=== PATIENT | female | born 1945 | race Caucasian/White ===

== ENCOUNTER 2020-11-09 05:16 | Observation (INO) ==
--- NOTE | 2020-10-17 09:15 | Anesthesiology Consultation ---
Date of Service October 17, 2020 Assessment & Plan (1) Encounter for pre-operative examination: COVID Status: As of 10/17 assessment, patient denies travel to endemic area, known exposure/sick contacts, or symptoms of COVID19. Patient advised to adhere to social distancing guidelines, wear a mask in public and avoid large crowds or unnecessary travel in the 2 weeks leading up to surgery. Preoperative COVID19 testing to be completed prior to surgery per surgeon's arrangements (11/07). Patient encouraged to be extra cautious/conscientious with COVID precautions between COVID testing and surgery. Elevated aPTT on pre-op labs: Spoke to Dr. Chase. General protocol would be to send pt to PCP for workup for possible Lupus anticoagulant, but as patient is self-pay ([facility]) and has no PCP and no h/o clotting or bleeding, OK with proceeding as long as surgeon is aware and OK to proceed (surgeon's office was notified, will inform surgeon). Will recheck AM DOS and proceed with either SAB or GA at MDA discretion. Chart Review Chart Review: Acceptable Risk for Surgery and Patient seen in Pre Admission Testing Teaching & Discussion Instructed NPO after midnight before surgery, except medications with 15 cc of water. Medication instructions provided according to the PAT guidelines. History Surgery Operation Date: 11/09/20 14:40 Proposed Procedures p Right Total Hip Arthroplasty Anterior - Michele Sparks DO Height/Weight Height: 5 ft 2 in Weight: 68.2 kg Allergies Allergy/AdvReac Type Severity Reaction Status Date / Time No Known Drug Allergies AdvReac Verified 10/17/20 08:13 Medications Home Medications Medication Instructions Recorded Confirmed Last Taken Activator 2 cap PO QAM 10/17/20 Unknown Complex S 1 cap PO QPM 10/17/20 Unknown Diphasic A.M. 1 cap PO QAM 10/17/20 Unknown Diphasic A.M. 2 cap PO QPM 10/17/20 Unknown Immuno-Synbiotic 2 cap PO BID 10/17/20 Unknown Oxy G 1 cap PO QAM 10/17/20 Unknown aspirin [Aspir-81] 81 mg PO QDL 10/17/20 10/17/20 Unknown diclofenac sodium [Voltaren] 75 mg PO QDL 10/17/20 10/17/20 Unknown iodine [Kelp (iodine)] 150 mcg PO QAM 10/17/20 10/17/20 Unknown lactobacillus combination no.4 3,000 mmu cells PO QDL 10/17/20 10/17/20 Unknown [Probiotic] Past Medical History Medical History (Updated 10/17/20 @ 09:19 by Cristhian Branch) Anxiety hx, stress test in 1990 d/t anxiety r/t chest pain Cancer 2015 colon cancer, s/p chemo/radiation Incontinence of bowel occassional Osteoarthritis Spontaneous x 3 Exercise / Class Metabolic Activity II 4-5 Yardwork/Stairs/Walk up hill (Limited by hip pain but denies SOB or CP with 1 FOS, just moves slowly) Past Surgical History Surgical History (Updated 10/17/20 @ 08:38 by Capri Leiva RN) History of colonoscopy 2014 History of dilatation and curettage History of hysterectomy S/P colon resection 2014 Past Anesthesia History No Hx of Anesthesia Complications and No Family Hx of Anesthesia Complications History of PONV No Hx of PONV and No Hx of Motion Sickness Social History Smoking Status: Never smoker Do You Dip or Chew Tobacco: No Hx Alcohol Use: No Hx Substance Use: No substance use type: does not use Review of Systems Pt denies any recent chest pain, shortness of breath, palpitations, cough, fever, URI, or uncontrolled acid reflux. Physical Exam Vital Signs BP: 139/68 P: 75bpm SPO2: 96% RA T: 98.3 F R: 12 ENMT Mouth: + dentures and + edentulous Thyromental Distance: > or= 3.5 Finger Breadths Mallampati Class: I Neck + limited neck extension (mildly) Respiratory normal respiratory effort, lungs clear to auscultation Cardiovascular RRR, no murmur, no edema Lab Results Anesthesia Preop Results Results Anesthesia Widget: WBC 4.23 K/uL (4.8-10.8) L 10/17/20 Hgb 11.9 g/dL (12.0-16.0) L 10/17/20 Hct 34.0 % (37-47) L 10/17/20 Plt 159 K/uL (130-400) 10/17/20 Na 139 mmol/L (136-145) 10/17/20 K 4.2 mmol/L (3.5-5.1) 10/17/20 Cl 110 mmol/L (98-107) H 10/17/20 CO2 25 mmol/L (21-32) 10/17/20 BUN 22 mg/dl (7-18) H 10/17/20 Creat 0.55 mg/dl (0.6-1.2) L 10/17/20 Glucose Level 110 mg/dl (70-99) H 10/17/20 PT 10.5 Seconds (9.0-12.0) 10/17/20 PTT 37.0 Seconds (21.0-31.0) H 10/17/20 INR 1.0 (0.9-1.1) 10/17/20 Blood Type O Positive 10/17/20 Antibody Screen NEGATIVE 10/17/20 Lab Comments: Spoke to Caroline at Dr Sparks's office to make them aware of elevated PTT. Testing Electrocardiogram Date: 10/17/20 Findings: + NSR @ (73bpm) Chest X-Ray Date: 10/17/20 Findings: + NAD
--- NOTE | 2020-10-17 09:25 | PAT Medication Instructions ---
Medication Instructions Date of Service October 17, 2020 Home Medications Activator 2 cap PO QAM Complex S 1 cap PO QPM Diphasic A.M. 1 cap PO QAM Diphasic A.M. 2 cap PO QPM Immuno-Synbiotic 2 cap PO BID Oxy G 1 cap PO QAM aspirin [Aspir-81] 81 mg PO QDL diclofenac sodium [Voltaren] 75 mg PO QDL iodine [Kelp (iodine)] 150 mcg PO QAM lactobacillus combination no.4 [Probiotic] 3,000 mmu cells PO QDL ASK your surgeon for instructions diclofenac sodium [Voltaren] 75 mg PO QDL STOP taking 2 weeks before surgery If surgery is within 2 weeks, stop taking as soon as possible. Activator 2 cap PO QAM Complex S 1 cap PO QPM Diphasic A.M. 1 cap PO QAM Diphasic A.M. 2 cap PO QPM Oxy G 1 cap PO QAM iodine [Kelp (iodine)] 150 mcg PO QAM DO NOT take the morning of surgery Immuno-Synbiotic 2 cap PO BID lactobacillus combination no.4 [Probiotic] 3,000 mmu cells PO QDL Take morning of surgery With a small sip of water, OTHERWISE NOTHING TO EAT OR DRINK AFTER MIDNIGHT: aspirin [Aspir-81] 81 mg PO QDL (may skip depending on time of surgery. No need to take it early if your arrival time is scheduled for before noon) Other Notes If you have any questions please call us at [phone] or [phone] or [phone] or [phone]
--- NOTE | 2020-11-08 06:59 | History & Physical Report ---
Date of Service November 08, 2020 Assessment & Plan (1) Osteoarthritis of right hip: We will proceed with a right anterior total hip arthroplasty. Postoperatively she will be started on aspirin for DVT prophylaxis and kept overnight in the hospital for postoperative medical management. She does not plan to do physical therapy upon discharge. History of Present Illness Chief Complaint: Osteoarthritis of the right hip. Primary Care Provider: NO PCP Noemí is a pleasant 75-year-old [place] female who has been dealing with chronic worsening right hip and groin pain. Is been really bad over the past 6 months. She has been using a cane because of the pain. She takes anti-inflammatories without relief. She been seeing a chiropractor without relief. X-rays show advanced osteoarthritis of the right hip. After failing conservative treatment, she has elected to proceed with a right total hip arthroplasty.. Allergies Allergy/AdvReac Type Severity Reaction Status Date / Time No Known Drug Allergies AdvReac Verified 10/17/20 08:13 Home Medications Medication Instructions Recorded Confirmed Type Activator 2 cap PO QAM 10/17/20 History Complex S 1 cap PO QPM 10/17/20 History Diphasic A.M. 1 cap PO QAM 10/17/20 History Diphasic A.M. 2 cap PO QPM 10/17/20 History Immuno-Synbiotic 2 cap PO BID 10/17/20 History Oxy G 1 cap PO QAM 10/17/20 History aspirin [Aspir-81] 81 mg PO QDL 10/17/20 10/17/20 History diclofenac sodium [Voltaren] 75 mg PO QDL 10/17/20 10/17/20 History iodine [Kelp (iodine)] 150 mcg PO QAM 10/17/20 10/17/20 History lactobacillus combination no.4 3,000 mmu cells PO QDL 10/17/20 10/17/20 History [Probiotic] tramadol 50 mg tablet 50 mg PO Q6H PRN #20 tab 10/29/20 Rx Past Med/Surg History Medical History Anxiety hx, stress test in 1990 d/t anxiety r/t chest pain Cancer 2015 colon cancer, s/p chemo/radiation Incontinence of bowel occassional Osteoarthritis Spontaneous x 3 Surgical History History of colonoscopy 2014 History of dilatation and curettage History of hysterectomy S/P colon resection 2015 Social History Smoking Status: Never smoker Hx Alcohol Use: No Hx Substance Use: No Preferred Language: [place]i Teen Counselor Required: No Beliefs That Will Affect Care: None Current Living Situation: Spouse Feels Safe at Home: Yes Assistive Devices: Cane, Denture - Upper, Denture - Lower and Glasses Review of Systems All systems reviewed & are unremarkable except as noted in HPI & below. Physical Exam On physical examination of the right hip, she walks with an antalgic gait. She is limited range of motion. She has pain in her groin with forced internal and external rotation.. Constitutional WD/WN, vitals as above Eyes PERRL, conjunctivae normal, anicteric sclerae ENMT external ear and nose normal, oropharynx normal Neck trachea midline, no thyromegaly Respiratory normal respiratory effort Cardiovascular RRR, no murmur, no edema Gastrointestinal (Abdomen) normal bowel sounds, soft, nontender, no hepatosplenomegaly Psychiatric A+Ox3, euthymic affect Results & Data Results & Data Laboratory Results . Diagnostic Findings X-rays of the right hip do show advanced osteoarthritis with joint space narrowing, osteophyte formation, and [id number] articulation. PG Care Time/CCT Total # of Minutes Spent Total Time Spent with Patient: Total time spent is greater than 50% in coordination of care (as documented) at patient's floor/unit and/or counseling patient: Coding Level of Care Code None Diagnoses Osteoarthritis of right hip M16.11
[2020-11-09] MEDS ORDERED: FAMOTIDINE 20 MG TAB PO SCH (06:00)
[2020-11-09] MEDS ORDERED: LR 500ML BOLUS, THEN 15ML/HR IV SCH (06:00)
[2020-11-09] MEDS ORDERED: ceFAZolin 2000MG 2,000 MG/15 ML SYR IV SCH (06:00)
[2020-11-09] MEDS ORDERED: GABAPENTIN 300 MG CAP PO SCH (06:00)
[2020-11-09] MEDS ORDERED: ACETAMINOPHEN 500 MG TAB PO SCH (06:00)
[2020-11-09] MEDS ORDERED: LR 60ML/HR IV SCH (06:00)
[2020-11-09] MEDS ORDERED: ROPIVACAINE 0.5% HCL/PF 150 MG, BUPIVACAINE 0.75% MPF 20 ML, EPINEPHrine 30MG/30ML (OR ... INFIL SCH (06:00)
[2020-11-09] MEDS ORDERED: dexAMETHasone 4 MG TAB PO SCH (06:00)
[2020-11-09] MEDS ORDERED: TRANEXAMIC ACID 1,000 MG **IV Pre-op IV SCH (06:00)
[2020-11-09] MEDS ORDERED: BUPIVACAINE 0.5 % 5 MG/1 ML PF 10ML VIAL ONE (06:26)
[2020-11-09] MEDS ORDERED: ATROPINE SULFATE 0.1 MG/ML 10ML SYR IV PRN (06:27)
[2020-11-09] MEDS ORDERED: LIDOCAINE 2% 2 ML VIAL/AMP(20MG/ML) INFIL ONE (06:27)
[2020-11-09] MEDS ORDERED: ONDANSETRON INJ 2 MG/ML 2 ML VIAL IV PRN ×2 (06:27→09:31)
[2020-11-09] MEDS ORDERED: PROPOFOL IV EMULSION 10 MG/ML 20 ML VIAL IV ONE ×2 (06:27→09:47)
[2020-11-09] MEDS ORDERED: ePHEDrine sulfate 50 MG/ML AMP IV PRN (06:27)
[2020-11-09] MEDS ORDERED: MIDAZOLAM HCL 1 MG/ML 2ML VIAL ONE (06:27)
[2020-11-09] MEDS ORDERED: fentaNYL citrate 100 MCG/2 ML VIAL ONE (06:27)
[2020-11-09 06:32] LABS: Partial Thromboplastin Ratio 1.5; Partial Thromboplastin Time 38.7 Seconds (21.0-31.0); Prothrombin Time 10.5 Seconds (9.0-12.0)
--- NOTE | 2020-11-09 06:36 | History & Physical Bridge Note ---
Date of Service November 09, 2020 History & Physical Bridge Note I have examined the patient, reviewed the History & Physical and in the interval since the performance of the History & Physical I have noted the following changes of clinical significance: no changes noted
[2020-11-09] MEDS ORDERED: PHENYLEPHRINE 100MCG/ML 5ML SYR ONE (07:27)
--- NOTE | 2020-11-09 08:16 | Operative Report ---
PG Post Operative Report Pre & Post Diagnosis Operation Date: 11/09/20 07:00 Pre-Op Diagnosis: Right Hip Osteoarthritis Post-Op Diagnosis: Right Hip Osteoarthritis I identified the patient and participated in the time-out.: Yes Procedure Operation Date: 11/09/20 07:00 Actual Procedures p Right Anterior Total Hip Arthroplasty, Uncemented(Right) - Michele Sparks DO Surgeon Michele Sparks DO Price Clerk Michele Ku PAC Estimated Blood Loss 200 Findings Consistent with Post-Op Diagnosis Specimens Right femoral head Complications none Disposition Disposition: Recovery Room Indications Noemí is a pleasant 75-year-old female who is been dealing with chronic worsening right hip pain. X-rays and clinical examination have been diagnostic for advanced osteoarthritis of the right hip. After failing conservative treatment, she has elected proceed with a right anterior total hip arthroplasty. Description of Procedure Implants used I used a [employer]immer[employer] total hip arthroplasty system with a size 2 Avenir Complete stem, a 50 mm G7 cup with a 25mm screw, an E1 polyethylene liner, a 36 mm ceramic head with a -3.5 neck. Noemí arrived at the hospital for the above procedure. She was seen in the preoperative holding area and the operative extremity was identified and signed. She was given a spinal anesthetic, a preoperative antibiotic, and TXA. She was then taken back to the operating room and laid on the table in the supine position. She was given basic sedation. The operative leg was secured to a Puristst leg positioner. The hip was then prepped and draped in sterile fashion. A timeout was done and the patient and the operative extremity was properly identified. An anterior approach was used. Dissection was taken down through the fascia and the tensor muscle belly was retracted laterally and the rectus was retracted medially. The circumflex vessels were identified and ligated. The capsule was then incised and tagged for later repair. The femoral neck was then cut and the femoral head was removed. The acetabulum was exposed. Time was spent doing a complete circumferential labral release. Sequential reaming of the acetabulum up to a size 49 reamer was done. Final reamings were done under fluoroscopy to ensure appropriate version. A Biomet 50 mm G7 cup was then impacted into place. A single 25 mm screw was placed. The E1 polyethylene liner was then snapped into place. Surrounding soft tissues were then injected with 100 cc of an orthopedic pain control cocktail. The proximal femur was then exposed. Sequential broaching up to a size 2 broach was done. Off that broach a size 36 head with a -3.5 neck was trialed. The hip was reduced and fluoroscopic images showed anatomic alignment of the implants in acceptable length. The broach was removed. The final size 2 Avenir Complete stem was then impacted into place. A ceramic 36 mm head with a -3.5 neck was then impacted onto the stem and the hip was reduced. Final fluoroscopic images showed anatomic alignment of the hip. The capsule was then closed with #1 Vicryl suture. A dilute betadyne lavage was then done for 3 minutes. The joint was then irrigated with normal saline solution. The fascia was closed with #1 PDS suture. Skin was closed with 2-0 Vicryl, octaviano, and a Silverlon dressing. She was then transferred to a hospital bed and taken to the post anesthesia care unit in stable condition. She tolerated the procedure well. Michele Ku PA-C, was present for the entire procedure. He was critical for patient positioning, prepping, draping, retraction exposure, wound closure and application of sterile dressing. I attest to the content of the Intraoperative Record and any orders documented therein. Any exceptions are noted below.
--- NOTE | 2020-11-09 09:09 | Fluoroscopy Report ---
FL hip RT 1V CLINICAL HISTORY: RT ANTERIOR HIP COMPARISON STUDY: Right hip radiographs October 10, 2020 FLUOROSCOPY TIME: 29 seconds. FLUOROSCOPIC IMAGES: 2 FINDINGS: Fluoroscopy was provided during total right hip arthroplasty. Hardware is intact. There is an acetabular screw. No fracture is identified by fluoroscopy. IMPRESSION: Fluoroscopy provided during total right hip arthroplasty. ACT 112: Negative or not required by law. Electronically signed by: Anirudh Moore M.D. 11/09/2020 9:08 AM
--- NOTE | 2020-11-09 09:11 | XRay Report ---
XR hip 1V RT w pelvis CLINICAL HISTORY: Postoperative evaluation. COMPARISON: Right hip radiographs October 10, 2020. FINDINGS: Alignment of the total right hip arthroplasty is anatomic. There is no periprosthetic frac ture. There are no unexpected radiopaque foreign bodies. Acetabular screw and skin octaviano are noted. IMPRESSION: Expected findings following total right hip arthroplasty. ACT 112: Negative or not required by law. Electronically signed by: Anirudh Moore M.D. 11/09/2020 9:10 AM
[2020-11-09] MEDS ORDERED: oxyCODONE HCL IR 5 MG TAB (IMMEDIATE RELEASE) PO PRN (09:31)
[2020-11-09] MEDS ORDERED: bisacodyL 10 MG SUPP PR PRN (09:31)
[2020-11-09] MEDS ORDERED: MAGNESIUM HYDROXIDE SUSP 30 ML UDC PO PRN (09:31)
[2020-11-09] MEDS ORDERED: NALOXONE HCL 0.4 MG/1 ML VIAL/CARP IV PRN (09:31)
[2020-11-09] MEDS ORDERED: METOCLOPRAMIDE HCL INJ 5 MG/ML 2 ML VIAL IV PRN (09:31)
[2020-11-09] MEDS ORDERED: HYDROmorphone INJ 0.5 MG/0.5 ML SYR IV PRN (09:31)
[2020-11-09] MEDS ORDERED: SODIUM CHLORIDE 0.9% 1000ML 1,000 ML IV SCH (09:31)
[2020-11-09] MEDS ORDERED: [UNRECOGNIZED DRUG - OTHER] PO SCH (09:31)
[2020-11-09] MEDS: MULTIVITAMIN TAB PO SCH (10:31)
[2020-11-09] MEDS: ASPIRIN 81 MG ECTAB PO SCH ×2 (10:31→21:07)
[2020-11-09] MEDS: DOCUSATE SODIUM 100 MG CAP PO SCH ×2 (10:31→21:06)
[2020-11-09] MEDS: KETOROLAC TROMETHAMINE 15 MG/ML VIAL IV SCH ×3 (10:32→21:08)
--- NOTE | 2020-11-09 14:22 | Anesthesiology Progress Note ---
Date of Service November 09, 2020 Anesthesia Post Procedure Vital Signs Vital Signs: Temp Pulse Pulse Resp BP BP BP 11/09/20 12:40 36.4 C L 77 18 168/75 H 11/09/20 11:30 36.4 C L 65 16 134/73 11/09/20 10:33 36.5 C 72 16 147/76 H 11/09/20 10:05 36.6 C 81 16 168/77 H 11/09/20 09:31 36.4 C L 69 16 157/74 H 11/09/20 09:15 68 16 143/71 H 11/09/20 09:05 36.7 C 67 24 142/70 H 11/09/20 08:55 70 19 144/73 H 11/09/20 08:45 66 23 145/74 H 11/09/20 08:36 36.6 C 78 14 137/71 11/09/20 06:03 36.9 C 80 20 181/77 H Pulse Ox 11/09/20 12:40 99 11/09/20 11:30 99 11/09/20 10:33 99 11/09/20 10:05 100 11/09/20 09:31 96 11/09/20 09:15 96 11/09/20 09:05 95 11/09/20 08:55 97 11/09/20 08:45 100 11/09/20 08:36 100 11/09/20 06:03 99 Transfer of Care Handoff Completed per policy Notes Mental Status: alert / awake / arousable and participated in evaluation Patient Amnestic to Procedure: Yes Nausea / Vomiting: adequately controlled Pain: adequately controlled Airway Patency, RR, SpO2: stable & adequate BP & HR: stable & adequate Hydration State: stable & adequate Neuraxial Anesthesia: was administered and sensory block is resolving Anesthetic Complications: no major complications apparent and Pt Satisfied with anesthetic care
[2020-11-09] MEDS: ACETAMINOPHEN 500 MG TAB PO SCH ×2 (16:23→21:06)
[2020-11-09] MEDS: ceFAZolin 2000MG 2,000 MG/15 ML SYR IV SCH ×2 (16:23→23:32)
[2020-11-09] MEDS ORDERED: [UNRECOGNIZED DRUG - OTHER] PO SCH (21:00)
[2020-11-09] MEDS ORDERED: SENNA 8.6 MG TAB PO SCH (21:00)
[2020-11-10] MEDS: KETOROLAC TROMETHAMINE 15 MG/ML VIAL IV SCH ×2 (05:10→10:47)
[2020-11-10] MEDS: ACETAMINOPHEN 500 MG TAB PO SCH (05:11)
--- NOTE | 2020-11-10 07:40 | Orthopedic Progress Note ---
Date of Service November 10, 2020 Assessment & Plan (1) Status post right hip replacement: Overall she is doing very well. She is not having much pain in the right hip. She can be seen by physical therapy today for ambulation and range of motion exercises. She is on aspirin for DVT prophylaxis. She can be discharged home later today. She will follow-up with orthopedics in 2 weeks. Subjective Noemí was seen and examined at bedside this morning. Overall she is doing very well. She is not having much pain in the right hip. She has already been up and ambulating into the hallways. She has no complaints.. Review of Systems All systems reviewed & are unremarkable except as noted in HPI & below. Physical Exam On physical examination of the right hip, the dressing is clean and dry. Her leg lengths are equal. She has active dorsiflexion and plantarflexion of her right ankle.. Results & Data Results & Data Laboratory Results . Diagnostic Findings Postoperative x-rays of the right hip show the prosthesis to be in anatomic alignment without any evidence of fracture, dislocation, or loosening. PG Care Time/CCT Total # of Minutes Spent Total Time Spent with Patient: Total time spent is greater than 50% in coordination of care (as documented) at patient's floor/unit and/or counseling patient: Coding Level of Care Code 65108 Post Operative Follow-Up Diagnoses Status post right hip replacement Z96.641
--- NOTE | 2020-11-10 07:41 | Discharge Summary ---
Date of Service November 10, 2020 Admission HPI (Per Admitting) Noemí is a pleasant 75-year-old [facility] female who has been dealing with chronic worsening right hip and groin pain. Is been really bad over the past 6 months. She has been using a cane because of the pain. She takes anti-inflammatories without relief. She been seeing a chiropractor without relief. X-rays show advanced osteoarthritis of the right hip. After failing conservative treatment, she has elected to proceed with a right total hip arthroplasty.. Admission Exam (Per Admitting) On physical examination of the right hip, she walks with an antalgic gait. She is limited range of motion. She has pain in her groin with forced internal and external rotation.. Principal Diagnosis Same as "Discharge Diagnosis" noted below under Discharge Instructions. Discharge Exam On physical examination of the right hip, the dressing is clean and dry. Her leg lengths are equal. She has active dorsiflexion and plantarflexion of her right ankle.. Discharge Data Procedures Performed Operation Date: 11/09/20 07:00 Actual Procedures p Right Anterior Total Hip Arthroplasty, Uncemented(Right) - Michele Sparks DO Ordered Studies 11/09/20 07:00 FL hip RT 1V Routine Hospital Course (1) Status post right hip replacement: On November 09, 2020 Noemí arrived to [facility] and underwent a right anterior hip replacement without complication. She had a spinal anesthetic. Postoperatively she was started on aspirin for DVT prophylaxis and transferred to the general orthopedic floors. Her hospital course was uneventful. On postop day #1 her vital signs were stable and her pain was well controlled. She was able to participate well with physical therapy doing ambulation and range of motion exercises. She was then discharged to home. She will follow-up with orthopedics in 2 weeks. PG Care Time/CCT Total # of Minutes Spent Total Time Spent with Patient: Total time spent is greater than 50% in coordination of care (as documented) at patient's floor/unit and/or counseling patient: Discharge Plan Discharge Items Patient Disposition: Home - Home Health Services Reason For Visit: Right Hip Osteoarthritis Discharge Diagnosis: Right hip placement Activity: As commented below Non-emergency contact: Surgeon Call non-emergency contact if: your wound has increased redness and your wound has increased drainage Follow-up/Referrals: Rubi Bradford CRNP [Primary Care Provider] - Diet: Regular Addtl Attending Provider Instructions: Activity and Therapy Recommendations: * If you are using [facility] then therapy will be provided at your home until they feel you have accomplished all of your goals. * If you are using [facility] then Physical Therapy will be provided until they feel you are ready to start Outpatient Physical Therapy. * If you are not using home therapy then Outpatient Physical Therapy should start about 3-5 days from your day of surgery. Therapy will last about 6-10 weeks * You were shown a series of exercises in the hospital. Do these exercises three times each day including the exercises you were shown in physical therapy. * Get up and walk several times each day.~ For the first four weeks, try not to stand or walk for more than one hour at a time. If you do stand or walk for more than one hour, you will not hurt anything, but your leg will likely swell.~~ * As you feel comfortable, you may change from the walker or crutches to a cane and~then to independent walking. Medications: * Narcotic You will likely be sent home from the hospital with a prescription for the narcotic pain medication that worked best throughout your stay. * Aspirin Most patients will be required to take Aspirin 81mg twice a day for 6 weeks after surgery. This is obtained [id number] and a prescription is not necessary. * Other medications may be prescribed for specific circumstances. If you have any questions, please call the office at . * Resume previous home medications unless otherwise instructed TEDs/Elastic Stockings: The white elastic stockings help limit swelling and prevent blood clots from forming in your legs. The more you wear them, the more they work. Wear them for six weeks. Dressing Care: Leave the Silverlon dressing in place for 7 days. After 7 days you may remove the dressing. If the incision is not draining then you may leave the octaviano open to air. If there is a little bit of drainage or if the octaviano are getting stuck on your clothing then cover the incision with a dry dressing. The octaviano will be removed at your 2 week follow-up appointment. Showering: You may shower with the Silverlon dressing in place. Do not let the shower spray hit the dressing directly. Pat the Silverlon dressing dry. If the dressing becomes wet underneath, then simply remove the dressing. Keep the incision dry until you are 7 days out from the day of surgery. After 7 days you may remove the Silverlon dressing and shower with the octaviano exposed. Let soapy water run over the octaviano and pat them dry. Do not scrub or soak the incision. Things To Watch For: * Drainage from the incision site that occurs more than one week after your surgery. * Increased redness at the incision site. * Fever above 102 degrees Fahrenheit. * Unusual chest pain or shortness of breath. * Call [facility] at with any of the above problems Follow-Up Visit: Follow-up with Dr. Sparks's PA (Michele Ku) 2-3 weeks after your day of surgery. He will remove your octaviano and answer any questions. If you have any additional questions or concerns, Dr Sparks is usually in the office at the same time and will be available An appointment was probably scheduled when you signed-up for surgery in the office. If you have any questions call Office Instructions: More detailed instructions as well as Frequently Asked Questions were provided in a folder by our office when you signed-up for surgery. Please review these instructions when you get home. If you have any further questions or concerns, please feel free to call the office at [phone] Pending Studies at Discharge: No Stand-Alone Forms: [facility], Smoking Cessation Medications and DC Order Prescriptions: New oxycodone 5 mg Tablet 5 mg PO Q4H PRN (Reason: pain) Qty: 30 RF: 0 Continued tramadol 50 mg tablet 50 mg PO Q6H PRN (Reason: pain) Qty: 20 RF: 0 Activator 2 cap PO QAM RF: 0 diclofenac sodium [Voltaren] 75 mg Tablet,Delayed Release (Dr/Ec) 75 mg PO QDL RF: 0 Kelp (iodine) 150 mcg Tablet 150 mcg PO QAM RF: 0 Probiotic 3 billion cell Capsule 3,000 mmu cells PO QDL RF: 0 Complex S 1 cap PO QPM RF: 0 Diphasic A.M. 2 cap PO QPM RF: 0 Diphasic A.M. 1 cap PO QAM RF: 0 Immuno-Synbiotic 2 cap PO BID RF: 0 Oxy G 1 cap PO QAM RF: 0 Changed aspirin 81 mg Tablet,Delayed Release (Dr/Ec) 81 mg PO BID 42 Days Qty: 0 RF: 0 Discharge Orders: Discharge Order (Routine); Ordered 11/10/20 Ordered By: Michele Sparks Admission Data Admit Date/Time: 11/09/20 08:39 Attending Provider: Michele Sparks Admit Provider: Michele Sparks Primary Care Provider: Rubi Bradford
[2020-11-10] MEDS ORDERED: dexAMETHasone 4 MG TAB PO SCH (08:00)
[2020-11-10] MEDS: MULTIVITAMIN TAB PO SCH (08:49)
[2020-11-10] MEDS: ASPIRIN 81 MG ECTAB PO SCH (08:49)
[2020-11-10] MEDS: DOCUSATE SODIUM 100 MG CAP PO SCH (08:49)
[2020-11-10 11:53] VITALS: BP 172/77; PULSE 78; TEMP 98.1; O2SAT 98
== END 2020-11-10 13:14 | disposition home health service (06) ==
LOC: ASU 05:16 → 3E 05:16

== ENCOUNTER 2021-07-22 10:20 | Observation (INO) ==
--- NOTE | 2021-07-16 13:58 | Anesthesiology Consultation ---
Date of Service July 16, 2021 Assessment & Plan Chart Review Chart Review: Acceptable Risk for Surgery and Patient NOT seen in Pre Admission Testing Consults Requested none ASA ASA3 History Surgery Operation Date: 04/12/21 07:00 Proposed Procedures p Left Total Knee Arthroplasty - Michele Sparks DO Operation Date: 07/22/21 12:35 Proposed Procedures p Left Total Knee Arthroplasty - Michele Sparks DO Height/Weight Height: 5 ft 3 in Weight: 73.482 kg Allergies Allergy/AdvReac Type Severity Reaction Status Date / Time No Known Drug Allergies AdvReac Verified 07/16/21 10:21 Medications Home Medications Medication Instructions Recorded Confirmed Last Taken diclofenac sodium 75 mg 75 mg PO QDL 10/17/20 07/16/21 10/26/20 tablet,delayed release lactobacillus combination no.4 3 3,000 mmu cells PO QDL 10/17/20 07/16/21 10/26/20 billion cell capsule (Probiotic) oxycodone 5 mg tablet 5 mg PO Q4H PRN #30 tab 11/10/20 07/16/21 Unknown ascorbic acid (vitamin C) 500 mg 500 mg PO QAM 07/16/21 07/16/21 Unknown tablet (Vitamin C) aspirin 81 mg tablet,delayed 81 mg PO QAM 07/16/21 07/16/21 Unknown release cholecalciferol (vitamin D3) 50 50 mcg PO QAM 07/16/21 07/16/21 Unknown mcg (2,000 unit) capsule (Vitamin D3) glucosamine-chondroitin 250 mg-200 1 tab PO QAM 07/16/21 07/16/21 Unknown mg tablet (Osteo Bi-Flex) oregano oil 1,500 mg capsule 1,500 mg PO QAM 07/16/21 07/16/21 Unknown vitamin E 400 unit capsule 400 unit PO QAM 07/16/21 07/16/21 Unknown Past Medical History Medical History History of colon cancer 2015 colon cancer, s/p chemo/radiation Incontinence of bowel occassional Osteoarthritis Spontaneous x3 (PT DENIES) Exercise / Class Metabolic Activity III < 4 Walking/Shop/Light housework Past Family History Family History Other No family history of adverse response to anesthesia Past Surgical History Surgical History History of colonoscopy History of dilatation and curettage History of hysterectomy History of tooth extraction History of total right hip arthroplasty Right anterior CAROLYNE (11/09/20): SAB at L4-L5 at [facility] S/P colon resection 2014 Past Anesthesia History No Hx of Anesthesia Complications and No Family Hx of Anesthesia Complications History of PONV No Hx of PONV and No Hx of Motion Sickness Social History Smoking Status: Never smoker Hx Alcohol Use: No Hx Substance Use: No substance use type: does not use Testing Electrocardiogram Date: 10/17/20 Findings: + NSR @ (at 73)
--- NOTE | 2021-07-18 11:59 | History & Physical Report ---
Date of Service July 18, 2021 Assessment & Plan (1) Osteoarthritis of left knee: We will proceed with a left total knee arthroplasty. Postoperatively she will be kept overnight in the hospital for postoperative medical management. She will be placed on aspirin for DVT prophylaxis. She plans to do her own home physical therapy upon discharge. History of Present Illness Chief Complaint: Osteoarthritis of the left knee. Primary Care Provider: GERMAINE Hughes Noemí is a pleasant 75-year-old female who recently underwent a right anterior total hip arthroplasty. She is doing well with that. Unfortunately she is having a lot of pain in her left knee. X-rays and clinical examination have been diagnostic for advanced osteoarthritis of the left knee. After failing extensive conservative treatment, she has elected proceed with a left total knee arthroplasty. Allergies Allergy/AdvReac Type Severity Reaction Status Date / Time No Known Drug Allergies AdvReac Verified 07/16/21 10:21 Home Medications Medication Instructions Recorded Confirmed Type diclofenac sodium 75 mg 75 mg PO QDL 10/17/20 07/16/21 History tablet,delayed release lactobacillus combination no.4 3 3,000 mmu cells PO QDL 10/17/20 07/16/21 History billion cell capsule (Probiotic) oxycodone 5 mg tablet 5 mg PO Q4H PRN #30 tab 11/10/20 07/16/21 Rx ascorbic acid (vitamin C) 500 mg 500 mg PO QAM 07/16/21 07/16/21 History tablet (Vitamin C) aspirin 81 mg tablet,delayed 81 mg PO QAM 07/16/21 07/16/21 History release cholecalciferol (vitamin D3) 50 50 mcg PO QAM 07/16/21 07/16/21 History mcg (2,000 unit) capsule (Vitamin D3) glucosamine-chondroitin 250 mg-200 1 tab PO QAM 07/16/21 07/16/21 History mg tablet (Osteo Bi-Flex) oregano oil 1,500 mg capsule 1,500 mg PO QAM 07/16/21 07/16/21 History vitamin E 400 unit capsule 400 unit PO QAM 07/16/21 07/16/21 History Past Med/Surg History Medical History History of colon cancer 2014 colon cancer, s/p chemo/radiation Incontinence of bowel occassional Osteoarthritis Spontaneous x3 (PT DENIES) Surgical History History of colonoscopy History of dilatation and curettage History of hysterectomy History of tooth extraction History of total right hip arthroplasty Right anterior CAROLYNE (11/09/20): SAB at L4-L5 at [facility] S/P colon resection 2014 Family History Other No family history of adverse response to anesthesia Social History Smoking Status: Never smoker Second Hand Exposure: No; Hx Alcohol Use: No Hx Substance Use: No Preferred Language: [place] Communication Ability: Effective Cupola Melter Helper Required: No Beliefs That Will Affect Care: Baptist Baptist Beliefs: STEPHANIE marital status: Current Living Situation: Spouse Feels Safe at Home: Yes Assistive Devices: Cane, Denture - Upper, Denture - Lower and Glasses Review of Systems All systems reviewed & are unremarkable except as noted in HPI & below. Physical Exam On physical examination of the left knee, she has a significant varus deformity. She has tenderness palpation of the distal medial femoral condyle and the medial joint line. Constitutional WD/WN, vitals as above Eyes PERRL, conjunctivae normal, anicteric sclerae ENMT external ear and nose normal, oropharynx normal Neck trachea midline, no thyromegaly Respiratory normal respiratory effort Cardiovascular RRR, no murmur, no edema Gastrointestinal (Abdomen) normal bowel sounds, soft, nontender, no hepatosplenomegaly Psychiatric A+Ox3, euthymic affect Results & Data Results & Data Laboratory Results . Diagnostic Findings X-rays of the left knee show advanced osteoarthritis with joint space narrowing osteophyte formation and epfh-id-ajot articulation. PG Care Time/CCT Total # of Minutes Spent Total Time Spent with Patient: Total time spent is greater than 50% in coordination of care (as documented) at patient's floor/unit and/or counseling patient: Coding Level of Care Code None Diagnoses Osteoarthritis of left knee M17.12
[~2021-07-22 10:20] MED LIST: ACETAMINOPHEN 500 MG TAB PO SCH; GABAPENTIN 300 MG CAP PO SCH; Ketorolac (*for OR use only*) 30 MG, dexAMETHasone 4 MG, KETAMINE HCL (**OR use only) 1... INFIL SCH; LR 15ML/HR IV SCH; LR 60ML/HR IV SCH; TRANEXAMIC ACID 1,000 MG **IV Intra-op IV SCH; TRANEXAMIC ACID 1,000 MG **IV Pre-op IV SCH; ceFAZolin 2000MG 2,000 MG/15 ML SYR IV SCH; dexAMETHasone 4 MG TAB PO SCH
--- NOTE | 2021-07-22 10:51 | History & Physical Bridge Note ---
Date of Service July 22, 2021 History & Physical Bridge Note I have examined the patient, reviewed the History & Physical and in the interval since the performance of the History & Physical I have noted the following changes of clinical significance: no changes noted
[2021-07-22 11:17] LABS: Hematocrit (blood only) 34.2 % (37-47); Hemoglobin 12.2 g/dL (12.0-16.0); Mean Corpuscular Hemoglobin 34.8 pg (25-34); Mean Corpuscular Volume 97.4 fL (80-100); Mean Platelet Volume 10.6 fL (7.4-10.4); Platelet Count 131 K/uL (130-400); RDW Coefficient of Variation 12.2 % (11.5-14.5); RDW Standard Deviation 43.4 fL (36.4-46.3); Red Blood Count 3.51 M/uL (4.2-5.4); White Blood Count 4.06 K/uL (4.8-10.8)
[2021-07-22 11:21] LABS: Mean Corpuscular Hgb Conc 35.7 g/dL (32-36)
[2021-07-22 11:40] LABS: Calcium 9.5 mg/dl (8.5-10.1); Potassium 3.8 mmol/L (3.5-5.1)
[2021-07-22] MEDS ORDERED: MIDAZOLAM HCL 1 MG/ML 2ML VIAL ONE (12:32)
[2021-07-22] MEDS ORDERED: BUPIVACAINE 0.5 % 5 MG/1 ML PF 10ML VIAL ONE (12:46)
[2021-07-22] MEDS ORDERED: EPINEPHrine INJ 1 MG/ML AMP ONE (12:46)
[2021-07-22] MEDS ORDERED: DEXAMETHASONE SOD INJ 4 MG/ML VIAL ONE (12:46)
[2021-07-22] MEDS ORDERED: BUPIVACAINE 0.25% 30 ML VIAL ONE (12:47)
[2021-07-22] MEDS ORDERED: ORTHO JOINT ANESTHETIC ONE (12:51)
[2021-07-22] MEDS ORDERED: fentaNYL citrate 100 MCG/2 ML VIAL IV PRN (13:25)
[2021-07-22] MEDS ORDERED: ePHEDrine sulfate 50 MG/ML AMP IV PRN (13:25)
[2021-07-22] MEDS ORDERED: ONDANSETRON INJ 2 MG/ML 2 ML VIAL IV PRN ×2 (13:25→16:09)
[2021-07-22] MEDS ORDERED: ATROPINE SULFATE 0.1 MG/ML 10ML SYR IV PRN (13:25)
[2021-07-22] MEDS ORDERED: PROPOFOL IV EMULSION 10 MG/ML 20 ML VIAL IV ONE ×2 (13:57→14:47)
[2021-07-22] MEDS ORDERED: KETAMINE 50 MG/5 ML SYRINGE ONE (13:57)
[2021-07-22] MEDS ORDERED: LIDOCAINE 2% 2 ML VIAL/AMP(20MG/ML) INFIL ONE (14:44)
[2021-07-22] MEDS ORDERED: ONDANSETRON INJ 2 MG/ML 2 ML VIAL ONE (14:44)
--- NOTE | 2021-07-22 15:00 | Operative Report ---
PG Post Operative Report Pre & Post Diagnosis Operation Date: 04/12/21 07:00 <No data on this case meets the specified criteria> Operation Date: 07/22/21 12:35 Pre-Op Diagnosis: Left Knee Osteoarthritis Post-Op Diagnosis: Left Knee Osteoarthritis I identified the patient and participated in the time-out.: Yes Procedure Operation Date: 04/12/21 07:00 <No data on this case meets the specified criteria> Operation Date: 07/22/21 12:35 Actual Procedures p Left Total Knee Arthroplasty(Left) - Michele Sparks DO Surgeon Michele Sparks DO Autism Motor Specialist Michele Ku PAC Estimated Blood Loss 20 Findings Consistent with Post-Op Diagnosis Specimens Left femoral and tibial bone Complications none Disposition Disposition: Recovery Room Indications Noemí is a pleasant 76-year-old female has been ill with chronic increasing left knee pain. X-rays and clinical examination were diagnostic for severe osteoarthritis of the left knee. After failing conservative treatment, she elected proceed with a left total knee arthroplasty. Description of Procedure Implants used: I used a Jamarcus Persona total knee arthroplasty system with a size 9 narrow PS femur, D tibia with a 30 mm stem, 31 oval patella, and a size 14 CPS polyethylene bearing. All components were cemented in place with Biomet cement. Noemí arrived [facility] for the above procedure. She was seen in the preoperative holding area and the operative extremity was identified and signed. She was given a preoperative antibiotic, TXA, a spinal anesthetic and an adductor nerve block. She was taken back to the operating room and laid on the table in supine position. She was given basic sedation. The operative knee was then prepped and draped in sterile fashion. A timeout was done, and the patient and the operative extremity was properly identified. A midline incision was made directly over the patella. Dissection was taken down to the extensor mechanism. A subvastus arthrotomy was used. The medial retinaculum was released and the fat pad was mostly excised. The knee was flexed and the ACL, PCL, and meniscus were removed. A drill was sent down the center of the femoral canal followed by an intramedullary freeman. Off that freeman a distal femoral cutting block was placed. 9 mm was resected off the distal femur at 5 of valgus. A posterior referencing AP sizing guide was then placed on the distal femur. The femur measured to be a size 9. 2 drill holes were placed in 3 of external rotation. A 4-in-1 cutting block was then impacted into place. Anterior, posterior, and chamfer cuts were then made. The proximal tibia was then exposed. An external tibial alignment guide was placed. A tibial cut guide was then anchored in place and the proximal tibia was then resected. The posterior aspect of the knee was then opened up and any additional meniscus fragments and osteophytes were removed. The tibia measured to be a size D. The tibial plate was then placed in the appropriate rotation and the tibia was drilled and punched. Trial components were then placed. I used a size 14 CPS polyethylene insert. The knee was brought through a full range of motion and felt to be stable. The peg holes for the femoral component were then drilled. The patella was then everted and 9 mm was resected off the posterior aspect of the patella. The patella measured to be a size 31 oval. 3 peg holes were then drilled. A trial patella was placed. The knee was once again brought through a full range of motion and felt to be stable. Trial components were then removed. The surrounding soft tissues were injected with 100 cc of an orthopedic pain control cocktail. All components were then cemented into place with Biomet cement. The final polyethylene insert was then snapped into place. Once cement was dry the tourniquet was deflated. Hemostasis was obtained. A dilute betadyne lavage was then done for 3 minutes. The joint was then irrigated with normal saline solution. The subvastus arthrotomy was then closed with #1 Vicryl suture. The skin was closed with 2-0 Vicryl, 3-0V lock suture, and octaviano. A soft compressive dressing was placed. She was then transferred to a hospital bed and taken to the postanesthesia care unit in stable condition. She tolerated the procedure well. Michele Ku PA-C, was present for the entire procedure. He was critical for patient positioning, prepping, draping, retraction exposure, wound closure and application of sterile dressing. I attest to the content of the Intraoperative Record and any orders documented therein. Any exceptions are noted below.
--- NOTE | 2021-07-22 15:36 | Anesthesiology Progress Note ---
Date of Service July 22, 2021 Anesthesia Post Procedure Vital Signs Vital Signs: Temp Pulse Pulse Resp BP BP Pulse Ox 07/22/21 15:25 77 20 158/84 H 99 07/22/21 15:16 36.5 C 82 20 148/79 H 97 07/22/21 11:06 37.4 C 94 H 20 184/87 H 96 Transfer of Care Handoff Completed per policy Notes Mental Status: alert / awake / arousable and participated in evaluation Nausea / Vomiting: adequately controlled Pain: adequately controlled Airway Patency, RR, SpO2: stable & adequate BP & HR: stable & adequate Hydration State: stable & adequate Neuraxial Anesthesia: was administered and sensory block is resolving Anesthetic Complications: no major complications apparent and Pt Satisfied with anesthetic care
--- NOTE | 2021-07-22 15:57 | XRay Report ---
XR knee LT 1 or 2V routine CLINICAL HISTORY: Postoperative evaluation. COMPARISON: Knee radiographs December 26, 2020. FINDINGS: Alignment of the total left knee arthroplasty is anatomic. No periprosthetic fracture or u nexpected radiopaque foreign bodies are present. There are skin octaviano. IMPRESSION: Expected findings following total left knee arthroplasty. ACT 112: Negative or not required by law. Electronically signed by: Anirudh Moore M.D. 07/22/2021 3:55 PM
[2021-07-22] MEDS ORDERED: HYDROmorphone INJ 0.5 MG/0.5 ML SYR IV PRN (16:09)
[2021-07-22] MEDS ORDERED: oxyCODONE HCL IR 5 MG TAB (IMMEDIATE RELEASE) PO PRN (16:09)
[2021-07-22] MEDS ORDERED: METOCLOPRAMIDE HCL INJ 5 MG/ML 2 ML VIAL IV PRN (16:09)
[2021-07-22] MEDS ORDERED: bisacodyL 10 MG SUPP PR PRN (16:09)
[2021-07-22] MEDS ORDERED: NALOXONE HCL 0.4 MG/1 ML VIAL/CARP IV PRN (16:09)
[2021-07-22] MEDS ORDERED: MAGNESIUM HYDROXIDE SUSP 30 ML UDC PO PRN (16:09)
[2021-07-22] MEDS: SODIUM CHLORIDE 0.9% 1000ML 1,000 ML IV SCH (17:11)
[2021-07-22] MEDS: KETOROLAC TROMETHAMINE 15 MG/ML VIAL IV SCH (17:11)
[2021-07-22] MEDS: ASPIRIN 81 MG ECTAB PO SCH (20:19)
[2021-07-22] MEDS: DOCUSATE SODIUM 100 MG CAP PO SCH (20:20)
[2021-07-22] MEDS: ceFAZolin 2000MG 2,000 MG/15 ML SYR IV SCH (20:30)
[2021-07-22] MEDS ORDERED: SENNA 8.6 MG TAB PO SCH (21:00)
[2021-07-22] MEDS: ACETAMINOPHEN 500 MG TAB PO SCH (21:20)
[2021-07-23] MEDS: KETOROLAC TROMETHAMINE 15 MG/ML VIAL IV SCH ×2 (00:27→05:15)
[2021-07-23] MEDS: SODIUM CHLORIDE 0.9% 1000ML 1,000 ML IV SCH (03:11)
[2021-07-23] MEDS: ACETAMINOPHEN 500 MG TAB PO SCH (05:14)
[2021-07-23] MEDS: ceFAZolin 2000MG 2,000 MG/15 ML SYR IV SCH (05:14)
--- NOTE | 2021-07-23 06:45 | Orthopedic Progress Note ---
Date of Service July 23, 2021 Assessment & Plan (1) Status post left knee replacement: Overall she is doing fairly well. She denies any much pain in the left knee. She will be seen by physical therapy today for ambulation and range of motion exercises. She is on aspirin for DVT prophylaxis. She can be discharged home later today. She will follow-up with orthopedics in 2 weeks. Subjective Noemí was seen and examined at bedside this morning. Overall she is doing well. She denies having much pain in the left knee. She has been up and ambulating to the bathroom. She has no complaints. Review of Systems All systems reviewed & are unremarkable except as noted in HPI & below. Physical Exam On physical examination of the left knee, the dressing is clean and dry. She is ice on her left knee. Her leg is out in full extension. She has active dorsiflexion plantarflexion of her left ankle.. Results & Data Results & Data Laboratory Results . Diagnostic Findings Postoperative x-rays of the left knee show the prosthesis to be in anatomic alignment without any evidence of fracture, dislocation, or loosening. PG Care Time/CCT Total # of Minutes Spent Total Time Spent with Patient: Total time spent is greater than 50% in coordination of care (as documented) at patient's floor/unit and/or counseling patient: Coding Level of Care Code 51688 Post Operative Follow-Up Diagnoses Status post left knee replacement Z96.652
--- NOTE | 2021-07-23 06:48 | Discharge Summary ---
Date of Service July 23, 2021 Admission HPI (Per Admitting) Noemí is a pleasant 75-year-old female who recently underwent a right anterior total hip arthroplasty. She is doing well with that. Unfortunately she is having a lot of pain in her left knee. X-rays and clinical examination have been diagnostic for advanced osteoarthritis of the left knee. After failing extensive conservative treatment, she has elected proceed with a left total knee arthroplasty. Admission Exam (Per Admitting) On physical examination of the left knee, she has a significant varus deformity. She has tenderness palpation of the distal medial femoral condyle and the medial joint line. Principal Diagnosis Same as "Discharge Diagnosis" noted below under Discharge Instructions. Discharge Exam On physical examination of the left knee, the dressing is clean and dry. She is ice on her left knee. Her leg is out in full extension. She has active dorsiflexion plantarflexion of her left ankle.. Discharge Data Procedures Performed Operation Date: 04/12/21 07:00 <No data on this case meets the specified criteria> Operation Date: 07/22/21 12:35 Actual Procedures p Left Total Knee Arthroplasty(Left) - Michele Sparks DO Ordered Studies 07/22/21 05:00 US - OR guided needle placemen Routine Hospital Course (1) Status post left knee replacement: On July 22, 2021 Noemí arrived at [facility] and underwent a left knee replacement without complication. She had a spinal anesthetic. Postoperatively she was started on aspirin for DVT prophylaxis and transferred to the general orthopedic floors. Her hospital course was uneventful. On postop day #1 her vital signs were stable and her pain was well controlled. She was able to participate well with physical therapy doing ambulation and range of motion exercises. She was then discharged home. She will follow-up with orthopedics in 2 weeks. PG Care Time/CCT Total # of Minutes Spent Total Time Spent with Patient: Total time spent is greater than 50% in coordination of care (as documented) at patient's floor/unit and/or counseling patient: Discharge Plan Discharge Items Patient Disposition: Home - Home Health Services Reason For Visit: POST OP Discharge Diagnosis: Left knee replacement Activity: Per Instructions section Non-emergency contact: Surgeon Call non-emergency contact if: your wound has increased redness and your wound has increased drainage Follow-up/Referrals: Rubi Bradford CRNP [Primary Care Provider] - Diet: Regular Addtl Attending Provider Instructions: Activity and Therapy Recommendations: * If you are using [facility] then therapy will be provided at your home until they feel you have accomplished all of your goals. * If you are using [facility] then Physical Therapy will be provided until they feel you are ready to start Outpatient Physical Therapy. * If you are not using home therapy then Outpatient Physical Therapy should start about 3-5 days from your day of surgery. Therapy will last about 6-10 weeks * It is important not to put a pillow under your knee when you are relaxing or sleeping. It is just as important to make sure you are getting your knee perfectly straight as it is to regain your knee bend. * You were shown a series of exercises in the hospital. Do these exercises three times each day including the exercises you were shown in physical therapy. * Get up and walk several times each day. For the first four weeks, try not to stand or walk for more than one hour at a time. If you do stand or walk for more than one hour, you will not hurt anything, but your leg will likely swell. * As you feel comfortable, you may change from the walker or crutches to a cane and then to independent walking. Medications: * Narcotic You will likely be sent home from the hospital with a prescription for the narcotic pain medication that worked best throughout your stay. * Aspirin Most patients will be required to take Aspirin 81mg twice a day for 6 weeks after surgery. This is obtained [id number] and a prescription is not necessary. * Other medications may be prescribed for specific circumstances. If you have any questions, please call the office at . * Resume previous home medications unless otherwise instructed TEDs/Elastic Stockings: The white elastic stockings help limit swelling and prevent blood clots from forming in your legs.~ The more you wear them, the more they work. Wear them for six weeks. Dressing Care: The dressing can be changed after physical therapy on postop day #1. Daily dry dressing changes for a few days, especially if the incision is still draining some. If the incision is not draining then you may leave the octaviano open to air. If there is a little bit of drainage or if the octaviano are getting stuck on your clothing then cover the incision with a dry dressing. The octaviano will be removed at your 2 week follow-up appointment. Showering: You may shower 5 days from the day of surgery as long as the incision is no longer draining. You may shower with the octaviano exposed. Let soapy water run over the octaviano and pat them dry. Do not scrub or soak the incision. Things To Watch For: * Drainage from the incision site that occurs more than one week after your surgery. * Increased redness at the incision site. * Fever above 102 degrees Fahrenheit. * Unusual chest pain or shortness of breath. * Call [facility] at with any of the above problems Follow-Up Visit: Follow-up with Dr. Sparks's PA (Michele Ku) 2-3 weeks after your day of surgery. He will remove your octaviano and answer any questions. If you have any additional questions or concerns, Dr Sparks is usually in the office at the same time and will be available An appointment was probably scheduled when you signed-up for surgery in the office. If you have any questions call Office Instructions: More detailed instructions as well as Frequently Asked Questions were provided in a folder by our office when you signed-up for surgery. Please review these instructions when you get home. If you have any further questions or concerns, please feel free to call the office at [phone] Pending Studies at Discharge: No Stand-Alone Forms: My [facility] Medications and DC Order Prescriptions: Continued oxycodone 5 mg tablet 5 mg PO Q6H PRN (Reason: pain) Qty: 30 RF: 0 ascorbic acid (vitamin C) [Vitamin C] 500 mg Tablet 500 mg PO QAM RF: 0 vitamin E 400 unit Capsule 400 unit PO QAM RF: 0 glucosamine-chondroitin [Osteo Bi-Flex] 250-200 mg Tablet 1 tab PO QAM RF: 0 cholecalciferol (vitamin D3) [Vitamin D3] 50 mcg (2,000 unit) Capsule 50 mcg PO QAM RF: 0 oregano oil 1,500 mg Capsule 1,500 mg PO QAM RF: 0 diclofenac sodium 75 mg Tablet,Delayed Release (Dr/Ec) 75 mg PO QDL RF: 0 Probiotic 3 billion cell Capsule 3,000 mmu cells PO QDL RF: 0 oxycodone 5 mg Tablet 5 mg PO Q4H PRN (Reason: pain) Qty: 30 RF: 0 aspirin 81 mg tablet,delayed release (DR/EC) 81 mg PO BID 42 Days Qty: 0 RF: 0 Discharge Orders: Discharge Order (Routine); Ordered 07/23/21 Ordered By: Michele Sparks Admission Data Admit Date/Time: 07/22/21 15:17 Attending Provider: Michele Sparks Admit Provider: Michele Sparks Primary Care Provider: Rubi Bradford
[2021-07-23] MEDS ORDERED: dexAMETHasone 4 MG TAB PO SCH (08:00)
[2021-07-23] MEDS: DOCUSATE SODIUM 100 MG CAP PO SCH (08:07)
[2021-07-23] MEDS: ASPIRIN 81 MG ECTAB PO SCH (08:08)
[2021-07-23] MEDS ORDERED: MULTIVITAMIN TAB PO SCH (09:00)
== END 2021-07-23 13:29 | disposition home health service (06) ==
LOC: 3E 10:20 → ASU 10:20